=== PATIENT | female | born 1995 | race African-American/Black ===

== ENCOUNTER 2020-07-28 19:14 | Emergency (ER) | payer MEDICAID ==
[~2020-07-28] VITALS: Ht 165.1 cm; Wt 85.7 kg
[2020-07-28 19:52] VITALS: BP 117/73
[2020-07-28 20:27] LABS: Urine Bacteria NONE SEEN /hpf (None Seen); Urine Blood Negative /uL (Negative); Urine Specific Gravity 1.023 (1.001-1.035); Urine WBC 15 /hpf (0 - 5)
[2020-07-28] MEDS ORDERED: cefTRIAXone SOD 1,000 MG VL IM ONE (21:15)
== END 2020-07-28 21:20 | disposition home or self-care (01) ==
LOC: ER 19:14
DX: N39.0 Urinary tract infection, site not specified (principal)
CPT/HCPCS: 81001; 81025; 96372; 99283; J0696

== ENCOUNTER 2020-09-12 21:00 | Emergency (ER) | payer MEDICAID ==
[2020-09-12 22:35] LABS: Urine Bacteria FEW /hpf (None Seen); Urine Blood Negative /uL (Negative); Urine Mucus FEW (None Seen); Urine Specific Gravity 1.015 (1.001-1.035); Urine WBC 26 /hpf (0 - 5)
[2020-09-13 00:45] VITALS: BP 139/89
[2020-09-13] MEDS ORDERED: cefTRIAXone SOD 1,000 MG VL IM ONE (01:00)
== END 2020-09-13 01:41 | disposition home or self-care (01) ==
LOC: ER 21:06
DX: N39.0 Urinary tract infection, site not specified (principal); R30.0 Dysuria; L02.411 Cutaneous abscess of right axilla; R35.0 Frequency of micturition; R39.15 Urgency of urination
CPT/HCPCS: 81001; 96372; 99283; J0696